=== PATIENT | female | born 1975 | race Caucasian/White ===

== ENCOUNTER 2017-08-18 09:05 | Outpatient (CLI) | payer OTHER ==
--- OUTSIDE RECORDS SUMMARY | 2017-08-18 09:08 | XMS | Clinical Summary ---
:1975 Author Organization [facility] Address [address] [place] [address] Phone Care Team Providers Name Role Phone , Primary Care Provider Unavailable Allergies Active Allergy Reactions Severity Noted Date Comments Penicillins Anaphylaxis High 11/03/2016 Sulfa (Sulfonamide Antibiotics) Itching Low 11/03/2016 Current Medications Prescription Sig. Disp. Refills Start Date End Date Status ranitidine (ZANTAC) 150 MG Take 150 mg by Active tablet mouth 2 (two) times daily. dexlansoprazole 60 mg Take 60 mg by Active capsule mouth daily. methotrexate 2.5 MG tablet Take 10 mg by Active mouth once a week. cholecalciferol, vitamin Take 1,000 Units Active D3, (VITAMIN D3) 1,000 unit by mouth daily. capsule cevimeline (EVOXAC) 30 mg Take 30 mg by Active capsule mouth 3 (three) times daily. folic acid (FOLVITE) 1 MG Take 1 mg by Active tablet mouth daily. furosemide (LASIX) 20 MG Take 20 mg by Active tablet mouth 2 (two) times daily. Active Problems Not on file Encounters Date Type Specialty Care Team Description 07/11/2017 Scanned Document 06/29/2017 Hospital Encounter Gastroenterology Samy Mcclellan MD 06/29/2017 Procedure Pass Gastroenterology 06/29/2017 Surgery Gastroenterology TERESA Mcclellan,24HR PH PROBE Samy Gutiérrez MD 06/28/2017 Hospital Encounter Gastroenterology Samy Mcclellan MD 06/28/2017 Procedure Pass Gastroenterology 06/28/2017 Surgery Gastroenterology Vy, MOTILITY Samy Gutiérrez MD from Last 3 Months Family History Medical History Relation Name Comments Diabetes Mother Hypertension Mother Relation Name Status Comments Father Alive Mother Alive Social History Tobacco Use Types Packs/Day Years Used Date Never Smoker Alcohol Use Drinks/Week oz/Week Comments No Sex Assigned at Date Recorded Not on file Last Filed Vital Signs Vital Sign Reading Time Taken Blood Pressure 127/84 06/28/2017 12:16 PM CDT Pulse 76 06/28/2017 12:16 PM CDT Temperature 36.4 C (97.5 F) 06/28/2017 12:16 PM CDT Respiratory Rate 18 06/28/2017 12:16 PM CDT Oxygen Saturation 98% 06/28/2017 12:16 PM CDT Inhaled Oxygen Concentration - - Weight 86.6 kg (191 lb) 06/28/2017 12:16 PM CDT Height 165.1 cm (5' 5") 06/28/2017 12:16 PM CDT Body Mass Index 31.78 06/28/2017 12:16 PM CDT Plan of Treatment Not on file Procedures Procedure Name Priority Date/Time Associated Diagnosis Comments TEST,MONITORING 24 HR 06/28/2017 12:00 PM Dysphagia, unspecified PH CDT type Special Needs (ON MEDICATION) MOTILITY 06/28/2017 12:00 PM CDT Dysphagia, unspecified type Special Needs (ON MEDICATION) from Last 3 Months Results Not on filefrom Last 3 Months
--- OUTSIDE RECORDS SUMMARY | 2017-08-18 09:08 | XMS | Clinical Summary ---
:1975 Author Organization [facility] Address [address] [place] [address] Phone Care Team Providers Name Role Phone Jono Lyon Primary Care Provider tel Allergies Active Allergy Reactions Severity Noted Date Comments Penicillins 04/04/2017 Sulfa (Sulfonamide Antibiotics) Hives 04/04/2017 Current Medications Prescription Sig. Disp. Refills Start Date End Date Status mycophenolate Take 2,500 mg Active (CELLCEPT) 250 mg by mouth 2 capsule (two) times a day. cevimeline (EVOXAC) 30 Take 30 mg by Active mg capsule mouth 3 (three) times a day. atovaquone (MEPRON) 750 Take 750 mg by Active mg/5 mL suspension mouth daily. cholecalciferol, Take 1,000 Active vitamin D3, (VITAMIN Units by mouth D3) 1,000 unit tablet daily. pantoprazole (PROTONIX) Take 40 mg by Active 40 MG EC tablet mouth 2 (two) times a day. famotidine (PEPCID) 40 Take 40 mg by Active MG tablet mouth 2 (two) times a day. topiramate (TROKENDI Take 100 mg by Active XR) 100 mg mouth daily. capsule,extended release 24hr furosemide (LASIX) 20 Take 1 tablet 30 tablet 1 05/11/2017 05/11/2018 Active mg tablet (20 mg total) by mouth as needed (leg swelling). Active Problems Problem Noted Date ILD (interstitial lung disease) 04/04/2017 Overview: Formatting of this note may be different from the original. Patient here for follow up. Doing pretty much the same as last time. She is seeing Dr Lyon for scleroderma. She is also diagnosed with swallowing issues. She has three small hiatal hernia. She is currently on cellcept 1000 mg in morning and 1500mg in evening. She also has secondary sjogren's. She is on cevimeline 30 mg TID. She is atovaquone Px. She is on pantoprazole 40 mg BID. Current symptoms: Symptoms are pretty much stable since the last visit She feels she is having little bit more cough. She has started sleeping propped up. 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 She feels that her legs are swollen. She feels bloated all the time. She used to run a lot but now she is not able. At times, she gets sob on talking She has some dry cough. No fever, weight loss, or chest pain She can do ADL's at home. In morning she is more fatigued. She can take shower, change clothes, cooking. She can make bed. SHe gets extremely tired with house cleaning She lives at ground level She has two cats. Never smoked. Never had birds No family history of CTD Did desaturate to 88%. No titration walk was done CT chest, not HRCT, shows, mild GGO opacities bilaterally at bases, going upto mid lung DLCO from 03/30/2017 in [facility] with Kathy Gómez MD PFT Information Baseline PFT Yes Date of Exam 03/30/17 PFT Comments -- [Patient did with good effort.] FEV1 FEV1 Predicted Value 3.11 FEV1 Pre 2.53 FEV1 % of Predicted 81 FVC FVC Predicted Value 3.82 FVC Pre 2.79 FVC % of Predicted 73 FEV1 % FVC FEV1 % of FVC Predicted Value 82.31 FEV1 % FVC Pre 90.61 FEV1 % FVC % of Predicted 110 MMEF 75/25 MMEF 75/25 Predicted Value 3.19 MMEF 75/25 Pre 4.24 MMEF 75/25 % of Predicted 133 PEF PEF Predicted Value 7.12 PEF Pre 5.66 PEF % of Predicted 79 TLC (PFT) TLC Predicted Value 5.21 TLC Pre 3.84 TLC % of Predicted 74 DLCO / MVO2 DLCOc SB Predicted 24.22 DLCOc SB Pre 14.76 DLCOc SB % of Predicted 61 DLCOc/VA 4.54 mmol/min/kPa/L VA 3.25 Liters Hb (PFT) 13.4 Liters MIPS MIPS pre (sitting) 38 MEPS MEPS pre (sitting) 40 Lung Volumes VC (PFT) 2.81 Liters ERV 1.07 Liters FRCpleath 2.1 Liters IC 1.74 Liters RV 1.03 Liters RV % TLC 26.78 % TLC Pre 3.84 TLC % of Predicted 74 R 0.5 IN 1.37 kPa*s/L sR 0.5 IN 3.32 kPa*s Six Minute Walk Data Distance Walked (feet) 454 feet [meters] Number of Stops 0 Time of Walk (Minutes) 6 minutes Desaturation? No - Patient did not experience desaturations 6 Minute Walk (At rest) 6 Minute Walk (Start) 6 Minute Walk (At 0.5 minute) 6 Minute Walk (At 1 minute) 6 Minute Walk (At 1.5 minute) 6 Minute Walk (At 2 minutes) 6 Minute Walk (At 2.5 minutes) 6 Minute Walk (At 3 minutes) 6 Minute Walk (At 3.5 minutes) 6 Minute Walk (At 4 minutes) 6 Minute Walk (At 4.5 minutes) 6 Minute Walk (At 5 minutes) 6 Minute Walk (At 5.5 minutes) 6 Minute Walk (At 6 minutes) 6 Minute Walk (5 min post) 6 Minute Walk SpO2 (walk) SpO2 Pre 99 SpO2 Post 95 Ending SpO2 90 Lowest SpO2 88 O2 Flow Rate (L/min) With Activity 0 L/min Heart Rate (walk) Heart Rate Pre 78 Heart Rate Post 119 Mildy reduced PFT with good walk distance, no qualifying desaturation A repeat walk test was done on 04/04/2017 and it shows a walk distance of 575 m with no desaturation. Her jose m sats were 95% Last Assessment & Plan: Patient with Scleroderma ILD came back today for follow up Doing well Still feeling fatigued. On stable immunesuppressive therapy. She has started following aspiration precautions. Awaiting echo and plan for RHC based on the findings although exam doesn't support She still complains significant fatigue which appears to me some what out of proportion. I do not find anything abnormal in her basic labs. I would defer the decision of immune suppressive therapy toDr Lyon She can be a candidate for BI study. Will discuss with Robbin Recommending pulm rehab Get echo now Need GI eval with Dr Kong RTC in 3 months with PFT Scleroderma 04/04/2017 Overview: Clinically appears to have diffuse disease On cellcept and cevimeline, taking atovoquone for PCP px Last Assessment & Plan: Recommend her to continue following up with Dr Lyon Gastroesophageal reflux disease without esophagitis 04/04/2017 Overview: Has prior GI evaluation Was scoped by GI outside Started on PPI and H2 salvatore both Last Assessment & Plan: Has got adjustable bed now, she is sleeping propped up Following all aspiration precautions, still waiting to see Dr Kong Family History Medical History Relation Name Comments Hypertension Father Diabetes Mother Hypertension Mother Relation Name Status Comments Brother Alive Father Alive Mother Alive Social History Tobacco Use Types Packs/Day Years Used Date Never Smoker Sex Assigned at Date Recorded Not on file Last Filed Vital Signs Vital Sign Reading Time Taken Blood Pressure 117/73 05/11/2017 10:01 AM CDT Pulse 82 05/11/2017 10:01 AM CDT Temperature 36.8 C (98.2 F) 05/11/2017 10:01 AM CDT Respiratory Rate 15 05/11/2017 10:01 AM CDT Oxygen Saturation 100% 05/11/2017 10:01 AM CDT Inhaled Oxygen Concentration - - Weight 79.4 kg (175 lb) 05/11/2017 10:01 AM CDT Height 166.4 cm (5' 5.5") 05/11/2017 10:01 AM CDT Body Mass Index 28.68 05/11/2017 10:01 AM CDT Plan of Treatment Date Type Specialty Care Team Description 08/31/2017 Office Visit Pulmonology Jono Cifuentes MD [address] [address] Health Maintenance Due Date Last Done Comments PAP SMEAR 1997 INFLUENZA VACCINE 06/21/2017 08/09/2016 Results Not on filefrom Last 3 Months Insurance Payer Benefit Plan / Group Subscriber ID Type Phone Address [address] [employer] [id number] [id number]
== END 2017-08-18 09:06 | disposition home or self-care (01) ==
LOC: CP 09:05
PROVIDERS: ATTEND Internal Medicine
DX: M34.9 Systemic sclerosis, unspecified (principal); J84.10 Pulmonary fibrosis, unspecified
CPT/HCPCS: 94010; 94727; 94729

== ENCOUNTER 2017-10-25 12:20 | Outpatient (CLI) | payer OTHER ==
--- NOTE | 2017-11-07 08:19 | PFT ---
PATIENT HISTORY: HEIGHT: 67 IN WEIGHT: 185 LBS SMOKER: NO HOW LONG: PACKS PER DAY: PRODUCTIVE COUGH: LUNG DISEASE: SCLERODERMA PHYSICIAN INTERPRETATION FINAL REPORT: Patient had good effort and cooperation. FVC 2.42 (66%), FEV1 2.13 (75%), FEV1/FVC 0.88. TLC 3.03 (56%), FRC 1.24 (43%), RV 0.98 (56%). Diffusion 15.50 (73%). There is a reduction in the FEV1 and FVC, suggestive of a restrictive profile. Lung volumes confirm volume restriction. Diffusion capacity is mildly impaired. IMPRESSION: Overall, these pulmonary function studies are consistent with mild restrictive lung disease, and mild reduction in gas exchange. Neonatal Icu Coordinator: ISMA Parking Line Painter: ISMA GALLAGHER
== END 2017-10-25 12:21 | disposition home or self-care (01) ==
LOC: CP 12:20
PROVIDERS: ATTEND Internal Medicine
DX: J84.9 Interstitial pulmonary disease, unspecified (principal); M34.9 Systemic sclerosis, unspecified
CPT/HCPCS: 94010; 94727; 94729

== ENCOUNTER 2018-03-21 13:07 | Outpatient (CLI) | payer OTHER | END 2018-03-21 13:08 | disposition home or self-care (01) | LOC: BICMAMMO 13:07 | PROVIDERS: ATTEND Family Medicine | DX: Z12.31 Encounter for screening mammogram for malignant neoplasm of breast (principal); R92.1 Mammographic calcification found on diagnostic imaging of breast | CPT/HCPCS: 77063; 77067 ==

== ENCOUNTER 2018-04-25 08:55 | Outpatient (CLI) | payer OTHER | END 2018-04-25 08:56 | disposition home or self-care (01) | LOC: CP 08:55 | PROVIDERS: ATTEND Internal Medicine | DX: M34.9 Systemic sclerosis, unspecified (principal); J84.10 Pulmonary fibrosis, unspecified | CPT/HCPCS: 94010; 94729 ==

== ENCOUNTER 2018-10-25 08:49 | Outpatient (CLI) | payer OTHER | END 2018-10-25 08:50 | disposition home or self-care (01) | LOC: CP 08:49 | PROVIDERS: ATTEND Internal Medicine | DX: J84.10 Pulmonary fibrosis, unspecified (principal); J84.9 Interstitial pulmonary disease, unspecified; J96.11 Chronic respiratory failure with hypoxia | CPT/HCPCS: 94010; 94729 ==

== ENCOUNTER 2019-02-28 08:51 | Outpatient (CLI) | payer OTHER | END 2019-02-28 08:52 | disposition home or self-care (01) | LOC: CP 08:51 → ULT 08:52 | PROVIDERS: ATTEND Internal Medicine | DX: Z51.81 Encounter for therapeutic drug level monitoring (principal); J84.9 Interstitial pulmonary disease, unspecified; M34.9 Systemic sclerosis, unspecified; Z79.899 Other long term (current) drug therapy | CPT/HCPCS: 93306; 94010; 94729 ==

== ENCOUNTER 2019-03-19 12:03 | Outpatient (CLI) | payer OTHER ==
--- NOTE | 2019-03-22 14:01 | MMO ---
Bilateral MAMMO Bilat Screen [facility]. CLINICAL HISTORY: Patient is 43 years old and is seen for screening. The patient has no family history of breast cancer. The patient has no personal history of cancer. VIEWS: The views performed were: bilateral craniocaudal with tomosynthesis and bilateral mediolateral oblique with tomosynthesis. FILMS COMPARED: The present examination has been compared to prior imaging studies performed at [facility] on 03/21/2018, and at [facility] on 06/16/2012. MAMMOGRAM FINDINGS: There are scattered fibroglandular densities. There are no suspicious masses, suspicious calcifications, or new areas of architectural distortion. IMPRESSION: THERE IS NO MAMMOGRAPHIC EVIDENCE OF MALIGNANCY. A ROUTINE FOLLOW-UP MAMMOGRAM IN 1 YEAR IS RECOMMENDED. THE RESULTS OF THIS EXAM WERE SENT TO THE PATIENT. ACR BI-RADS Category 1 - Negative MAMMOGRAPHY NOTE: 1. A negative mammogram report should not delay a biopsy if a dominant of clinically suspicious mass is present. 2. Approximately 10% to 15% of breast cancers are not detected by mammography. 3. Adenosis and dense breasts may obscure an underlying neoplasm.
== END 2019-03-19 12:04 | disposition home or self-care (01) ==
LOC: BICMAMMO 12:03
PROVIDERS: ATTEND Family Medicine
DX: Z12.31 Encounter for screening mammogram for malignant neoplasm of breast (principal)
CPT/HCPCS: 77063; 77067

== ENCOUNTER 2019-09-04 08:35 | Outpatient (CLI) | payer OTHER ==
--- NOTE | 2019-09-05 10:37 | PFT ---
PATIENT HISTORY: HEIGHT: 65 IN WEIGHT: 194 SMOKER: NO HOW LONG: NA PACKS PER DAY: PRODUCTIVE COUGH: LUNG DISEASE: PHYSICIAN INTERPRETATION FINAL REPORT: Patient had good effort and good cooperation. FVC 2.30 (61%), FEV1 2.01 (66%), FEV1/FVC 0.87. DIFFUSION 14.25 (56%) There is a symmetric reduction to the FEV1 and FVC, suggestive of a restrictive profile. That was previously confirmed with lung volumes. Diffusion Capacity is moderately impaired. Compared to February of 2019, and October of 2018, there has been no significant change to spirometry values. There has been a slow decline the Diffusion Capacity, though it is not statistically significant. IMPRESSION: Overall, these pulmonary function studies are consistent with mild restrictive lung disease, with moderate reduction in gas exchange. Academic Affairs Manager: CHAUNCEY Environmental Officer: CHAUNCEY GALLAGHER
== END 2019-09-04 08:36 | disposition home or self-care (01) ==
LOC: CP 08:35
PROVIDERS: ATTEND Internal Medicine
DX: J84.10 Pulmonary fibrosis, unspecified (principal)
CPT/HCPCS: 94010; 94729